=== PATIENT | male | born 1995 | race Two or more races ===

== ENCOUNTER 2019-09-07 14:13 | Emergency (ER) | payer OTHER ==
--- NOTE | 2019-09-07 14:32 | TELE ---
HPI Do you have fever,cough or shortness of breath?: No - General Reason For Visit: COVID 19 TESTING History Source: Patient Exam Limitations: No Limitations - History of Present Illness 09/07/19 14:30 24-year-old male denies past medical history requesting COVID testing given he is traveling in 1 week to [facility]. Patient denies any symptoms such as cough, fever, chills, chest pain, abdominal pain, vomiting, diarrhea, recent sick contacts or recent travel. COVID swab test ordered [facility] - Medical Decision Making 09/07/19 14:31 Patient denies past medical history requesting cover testing given he is traveling in 1 week to [facility]. Denies any symptoms. COVID test ordered Discharge Diagnosis at time of Disposition: Counseled about COVID-19 virus infection, Suspected 2019 novel coronavirus infection - Referrals Follow-up Referral(s): Ronald Bhatia MD [Primary Care Provider] - - Patient Instructions - Discharge Disposition: HOME Condition at time of Disposition: Stable
== END 2019-09-07 14:40 | disposition home or self-care (01) ==
LOC: JVIRT 14:13
DX: Z11.59 Encounter for screening for other viral diseases (principal)
CPT/HCPCS: Q3014-GT; U0003

== ENCOUNTER 2019-12-21 16:24 | Emergency (ER) | payer OTHER | END 2019-12-21 17:10 | disposition home or self-care (01) | LOC: JVIRT 16:24 | DX: U07.1 COVID-19 (principal) | CPT/HCPCS: C9803; Q3014-GT; U0003 ==